=== PATIENT | male | born 2000 | race Caucasian/White ===

== ENCOUNTER 2019-12-05 19:33 | Emergency (ER) | payer BC ==
[2019-12-05] MEDS ORDERED: Lidocaine 1% 10 ML MDV INJECT ONE (20:07)
[2019-12-05] MEDS ORDERED: Diphtheria,Pertussis(Acell),Tetanus Vaccine 0.5 ML Syringe IM ONE (20:07)
[2019-12-05] MEDS ORDERED: cefTRIAXone 1 GM, Lidocaine 1% 2.1 ML IM ONE ×2 (20:57)
--- NOTE | 2019-12-05 21:18 | EDM.PDOC ---
ED HPI GENERAL MEDICAL PROBLEM - General Chief Complaint: Upper Extremity Injury/Pain Stated Complaint: NAIL IN LEFT HAND Time Seen by Provider: 12/05/19 19:50 Source of Information: Reports: Patient History Limitations: Reports: No Limitations - History of Present Illness INITIAL COMMENTS - FREE TEXT/NARRATIVE: Patient is a 19-year-old male who presents to the emergency department with a nail through his left hand. He states that he was building a garage in his backyard and the nail bounced off the board and went through his hand. He is able to move all of his extremities but states it does have a lot of pressure. He is unsure when his last tetanus vaccination was. - Related Data Allergies Allergy/AdvReac Type Severity Reaction Status Date / Time No Known Allergies Allergy Verified 12/05/19 19:50 Home Meds: Home Meds cephALEXin [Keflex] 500 mg PO Q6H #20 cap 12/05/19 [Rx] Past Medical History - Past Surgical History HEENT Surgical History: Reports: Oral Surgery Other HEENT Surgeries/Procedures: wisdom Social & Family History - Family History Family Medical History: Noncontributory - Tobacco Use Smoking Status *Q: Never Smoker Review of Systems - Review of Systems Review Of Systems: Comprehensive ROS is negative, except as noted in HPI. ED EXAM, GENERAL - Physical Exam Exam: See Below Exam Limited By: No Limitations General Appearance: Alert, WD/WN, No Apparent Distress Respiratory/Chest: No Respiratory Distress, Lungs Clear, Normal Breath Sounds, No Accessory Muscle Use, Chest Non-Tender Cardiovascular: Normal Peripheral Pulses, Regular Rate, Rhythm, No Edema, No Gallop, No JVD, No Murmur, No Rub Extremities: Other (Approximate 3 inch nail entered through the ventral aspect of the left hand at the base of the fifth metacarpal. Travel through the hand at a an angle and exited on the dorsal aspect of the hand medial to the MCP joint of the fifth finger. Patient is able to move all of his fingers. Nail appears to have missed the joints of both fingers.) Neurological: Alert, Oriented, CN II-XII Intact, Normal Cognition, Normal Gait, Normal Reflexes, No Motor/Sensory Deficits Psychiatric: Normal Affect, Normal Mood Skin Exam: Warm, Dry, Intact, Normal Color, No Rash Course - Vital Signs Last Recorded V/S: Last Vital Signs Temp 99.0 F 12/05/19 19:50 Pulse 95 12/05/19 19:50 Resp 16 12/05/19 19:50 BP 146/84 H 12/05/19 19:50 Pulse Ox 97 12/05/19 19:50 - Orders/Labs/Meds Orders: Active Orders 24 hr Category Date Time Status Vaccines to be Administered [RC] PER UNIT ROUTINE Care 12/05/19 20:07 Active Hand 2V Lt [CR] Stat Exams 12/05/19 20:44 Taken Hand Comp Min 3V Lt [CR] Stat Exams 12/05/19 19:56 Taken Meds: Medications Discontinued Medications Generic Name Dose Route Start Last Admin Trade Name Khanh PRN Reason Stop Dose Admin Ceftriaxone Sodium 1 gm/ 0 gm 12/05/19 20:57 Lidocaine HCl 2.1 ml IM 12/05/19 20:58 ONETIME ONE Diphtheria/Tetanus/Acell Pertussis 0.5 ml 12/05/19 20:07 12/05/19 20:32 Adacel IM 12/05/19 20:08 0.5 ml .ONCE ONE Administration Lidocaine HCl 10 ml 12/05/19 20:07 Xylocaine 1% INJECT 12/05/19 20:08 ONETIME ONE - Re-Assessments/Exams Free Text/Narrative Re-Assessment/Exam: 3 of the left hand shows of the nail appears to have missed both joints. I have ordered lidocaine and a tetanus vaccination. We will plan to remove the nail and re-x-ray it after. 12/05/19 21:15 Nail was easily removed after anesthetizing using a pliers. Repeat imaging does not show any fractures of the hand, however there may be a small chip off the bone of the lateral aspect of the distal fifth metacarpal. Patient has full range of motion of all of the metacarpals and full strength against flexion and extension. I have ordered Rocephin IM to be given now. I will send a prescription for Keflex for him to start tomorrow. Recommend he ice over the ar ea intermittently. Patient instructed to watch for signs of infection. Discharge instructions as documented. Departure - Departure Time of Disposition: 21:18 Disposition: Home, Self-Care 01 Condition: Good Clinical Impression: Foreign body hand Qualifiers: Encounter type: initial encounter Laterality: left Qualified Code(s): S60.552A - Superficial foreign body of left hand, initial encounter - Discharge Information *PRESCRIPTION DRUG MONITORING PROGRAM REVIEWED*: No *COPY OF PRESCRIPTION DRUG MONITORING REPORT IN PATIENT CHRISTIAN: No Prescriptions: cephALEXin [Keflex] 500 mg PO Q6H #20 cap Referrals: PCP,None [Primary Care Provider] - Additional Instructions: You were seen in the emergency department for a nail through your hand. X-rays were obtained and show no fractures. The nail was removed after lidocaine was used to numb your hand. While in the ER you received an injection and of antibiotics. A prescription for antibiotics is also been sent to [facility]. Take these medications as prescribed to prevent infection. Recommend that she use [id number] Tylenol or ibuprofen as needed for pain. Ice the area intermittently for the next couple days. Watch for signs of infection including increased redness, swelling, or purulent drainage from the puncture site. If this should occur, you should be seen in the emergency department or in the clinic. Return to the ER as needed. Sepsis Event Note (ED) - Evaluation Sepsis Screening Result: No Definite Risk - Focused Exam Vital Signs: Vital Signs Temp Pulse Resp BP Pulse Ox 12/05/19 19:50 99.0 F 95 16 146/84 H 97 - My Orders Last 24 Hours: My Active Orders 12/05/19 19:56 Hand Comp Min 3V Lt [CR] Stat 12/05/19 20:07 Vaccines to be Administered [RC] PER UNIT ROUTINE 12/05/19 20:44 Hand 2V Lt [CR] Stat - Assessment/Plan Last 24 Hours: My Active Orders 12/05/19 19:56 Hand Comp Min 3V Lt [CR] Stat 12/05/19 20:07 Vaccines to be Administered [RC] PER UNIT ROUTINE 12/05/19 20:44 Hand 2V Lt [CR] Stat
--- NOTE | 2019-12-07 09:56 | CR ---
Left hand: 2 views of the left hand were obtained. Comparison: No previous hand study is available. Joint spaces are preserved. No fracture, dislocation or other bony abnormality is appreciated. Impression: 1. No abnormality is identified on 2 view left hand exam. Diagnostic code #1 This report was dictated in MDT
--- NOTE | 2019-12-07 09:56 | CR ---
Left hand: 4 views left hand were obtained. Comparison: No prior hand study is available. Metallic nail is projected within the left hand at the level of the distal metacarpals. This mostly overlies the 4th and 5th digits. No fracture is appreciated. No additional abnormality is noted. Impression: 1. Metallic nail projected within the left hand. 2. No acute fracture is identified. Diagnostic code #3 This report was dictated in MDT
== END 2019-12-05 21:41 | disposition home or self-care (01) ==
LOC: JD.ED 19:33
DX: S60.552A Superficial foreign body of left hand, initial encounter (principal); Z23 Encounter for immunization; W45.0XXA Nail entering through skin, initial encounter
CPT/HCPCS: 73120; 73130; 90471; 90715; 96372; 99283; J0696; J2001

== ENCOUNTER 2020-02-25 19:29 | Emergency (ER) | payer BC ==
[2020-02-25] MEDS ORDERED: Lidocaine 1% 10 ML MDV INJECT ONE (19:51)
--- NOTE | 2020-02-25 19:56 | EDM.PDOC ---
ED HPI GENERAL MEDICAL PROBLEM - General Chief Complaint: Laceration Stated Complaint: LEG LAC Time Seen by Provider: 02/25/20 19:46 Source of Information: Reports: Patient, RN Notes Reviewed History Limitations: Reports: No Limitations - History of Present Illness INITIAL COMMENTS - FREE TEXT/NARRATIVE: Patient is a 19-year-old male who presents to the ED for the evaluation of a left leg laceration. This is a 15 cm fairly linear laceration of the patient's medial lower left leg. Patient notes he was using a metal sawblade to cut some material, when the sawblade ended up dislodging, and ended up nicking him in the left medial leg. He is not having any numbness or tingling into his foot, and still can wiggle his toes in all range of motion without difficulty. He notes there was quite a bit of blood. He is up-to-date on his tetanus booster, as he states that he last had one 5 months ago, as he put a nail through his hand. Other than the above, he has not had any fevers or chills, cough/shortness of breath, nausea/vomiting/diarrhea. Left Ankle Pain Score (Numeric/FACES): 8 - Related Data Allergies Allergy/AdvReac Type Severity Reaction Status Date / Time No Known Allergies Allergy Verified 02/25/20 19:50 Past Medical History - Past Surgical History HEENT Surgical History: Reports: Oral Surgery Other HEENT Surgeries/Procedures: wisdom Social & Family History - Family History Family Medical History: Noncontributory ED ROS GENERAL - Review of Systems Review Of Systems: Comprehensive ROS is negative, except as noted in HPI. ED EXAM, SKIN/RASH Exam: See Below Exam Limited By: No Limitations General Appearance: Alert, WD/WN, No Apparent Distress Respiratory/Chest: No Respiratory Distress, Lungs Clear, Normal Breath Sounds, No Accessory Muscle Use, Chest Non-Tender Cardiovascular: Normal Peripheral Pulses, Regular Rate, Rhythm, No Murmur Peripheral Pulses: 2+: Dorsalis Pedis (L), Dorsalis Pedis (R) Extremities: Normal Range of Motion, Normal Capillary Refill Neurological: Alert, Oriented, Normal Cognition, No Motor/Sensory Deficits Psychiatric: Normal Affect, Normal Mood Skin: Warm, Dry, Normal Color, No Rash, Wound/Incision (15 cm fairly linear laceration to the medial aspect of the left lower leg. This is above the medial malleolus.) ED SKIN PROCEDURES - Laceration/Wound Repair Left Lower Medial Leg Appearance: Subcutaneous, Mildly Contaminated (was cleansed per nursing staff) Distal NVT: Neuro & Vascular Intact, No Tendon Injury Anesthetic Type: Local Local Anesthesia - Lidocaine (Xylocaine): 1% Plain Local Anesthetic Volume: Other (6) Skin Prep: Chlorhexidine (Hibiciens), Saline Exploration/Debridement/Repair: Wound Explored, In a Bloodless Field, Explored to Base, No Foreign Material Found Closed with: Sutures Lac/Wound length In cm: 15 Suture Size: 4-0 # of Sutures: 15 Suture Type: Prolene, Interrupted, Simple Sterile Dressing Applied: Nurse Tetanus Status Addressed: Yes Complications: No Course - Vital Signs Last Recorded V/S: Last Vital Signs Temp 98.2 F 02/25/20 19:48 Pulse 110 H 02/25/20 19:48 Resp 20 02/25/20 19:48 BP Pulse Ox 95 02/25/20 19:48 - Orders/Labs/Meds Meds: Medications Discontinued Medications Generic Name Dose Route Start Last Admin Trade Name Khanh PRN Reason Stop Dose Admin Lidocaine HCl 10 ml 02/25/20 19:51 02/25/20 20:06 Xylocaine 1% INJECT 02/25/20 19:52 10 ml ONETIME ONE Administration Departure - Departure Time of Disposition: 19:55 Disposition: Home, Self-Care 01 Condition: Good Clinical Impression: Leg laceration Qualifiers: Encounter type: initial encounter Laterality: left Qualified Code(s): S81.812A - Laceration without foreign body, left lower leg, initial encounter - Discharge Information *PRESCRIPTION DRUG MONITORING PROGRAM REVIEWED*: No *COPY OF PRESCRIPTION DRUG MONITORING REPORT IN PATIENT CHRISTIAN: No Instructions: Sutured Wound Care, [id number] Referrals: PCP,None [Primary Care Provider] - Forms: ED Department Discharge Additional Instructions: You have been evaluated in the ED for your laceration. Sutures will need to stay in for 10-14 days. You may return to the ED or any clinic for removal. Please keep this area clean and dry, you may cleanse with regular soap and water. No vigorous scrubbing. Please try to avoid submerging the affected area in water for prolonged periods of time until the sutures are removed. Watch out for signs of infection like increased redness, swelling, pain at the laceration site, or if you should develop any fevers or chills. Please return to ED if your symptoms change or worsen. Sepsis Event Note (ED) - Evaluation Sepsis Screening Result: No Definite Risk - Focused Exam Vital Signs: Vital Signs Temp Pulse Resp Pulse Ox 02/25/20 19:48 98.2 F 110 H 20 95
== END 2020-02-25 20:45 | disposition home or self-care (01) ==
LOC: JD.ED 19:29
DX: S81.812A Laceration without foreign body, left lower leg, initial encounter (principal); W27.0XXA Contact with workbench tool, initial encounter
CPT/HCPCS: 12005; 99282; J2001